=== PATIENT | female | born 1965 | race African-American/Black ===

== ENCOUNTER 2016-06-29 19:23 | Observation (INO) | payer MEDICAID, OTHER ==
[~2016-06-29] VITALS: Ht 165.1 cm; Wt 104.0 kg
[~2016-06-29 19:23] MED LIST: ALBU8I INH; AMLO2.5T PO; GABA300C3 PO; IBUP600T26 PO; LASI20TA PO; LOSA25 PO; NITR0.4S SL; NOVO7030P2 SQ; PROT40TA PO
[2016-06-29 19:29] VITALS: BP 138/71; PULSE 79; RESP 20; TEMP 98.3; O2SAT 98
[2016-06-29 19:37] VITALS: BP_SYST 134; BP_SYST 140; BP_DIAS 71; BP_DIAS 72; PULSE 78; RESP 20; TEMP 98.3; O2SAT 98
[2016-06-29 19:38] VITALS: RESP 20
[2016-06-29 19:39] VITALS: BP 140/70; PULSE 78; RESP 20; TEMP 98.3; O2SAT 98
[2016-06-29] MEDS ORDERED: FURO1TAB62 PO (19:43)
[2016-06-29] MEDS ORDERED: LOSA25TA PO (19:43)
[2016-06-29] MEDS ORDERED: NITR1SUB3 SL (19:43)
[2016-06-29] MEDS ORDERED: GLIP10TA6 PO (19:43)
[2016-06-29] MEDS ORDERED: ALBUAER3 INH (19:43)
[2016-06-29] MEDS ORDERED: AMLO2.5T PO (19:43)
[2016-06-29] MEDS ORDERED: NOVO7030P2 SQ (19:43)
[2016-06-29] MEDS ORDERED: GABA300C5 PO (19:43)
[2016-06-29] MEDS ORDERED: PROT40TA PO (19:43)
[2016-06-29] MEDS ORDERED: ASPIRIN 81 MG CHEW TAB PO ONE (19:45)
[2016-06-29] MEDS ORDERED: SODIUM CHLORIDE 0.9% FLUSH 5 ML FLUSH IVF PRN ×2 (19:45→21:30)
[2016-06-29 20:11] LABS: AUTOMATED NEUTROPHIL # 3.7 TH/MM3 (1.8-7.7); BASOPHIL % 0.3 % (0.0-2.0); EOSINOPHIL # 0.1 TH/MM3 (0-0.4); EOSINOPHIL % 1.9 % (0.0-4.0); HEMATOCRIT 35.8 % (35.0-46.0); HEMO FLAGS DIFF FINAL; LYMPH % 38.6 % (9.0-44.0); LYMPHOCYTE # 2.6 TH/MM3 (1.0-4.8); MEAN CELL VOLUME 86.6 FL (80.0-100.0); MEAN CORPUSCULAR HEMOGLOBIN 29.9 PG (27.0-34.0); MEAN CORPUSCULAR HGB CONC 34.5 % (32.0-36.0); MONO % 4.1 % (0.0-8.0); NEUT % 55.1 % (16.0-70.0); PLATELET COUNT 353 TH/MM3 (150-450); RED BLOOD COUNT 4.14 MIL/MM3 (4.00-5.30); RED CELL DISTRIBUTION WIDTH 14.1 % (11.6-17.2); WHITE BLOOD COUNT 6.7 TH/MM3 (4.0-11.0)
[2016-06-29 20:12] LABS: APTT (PATIENT) 26.1 SEC (24.3-30.1); INTERNATIONAL NORMALIZED RATIO 0.9 RATIO; PROTHROMBIN TIME - PATIENT 9.7 SEC (9.8-11.6)
[2016-06-29 20:21] LABS: ANION GAP 9 MEQ/L (5-15); BICARBONATE 26.8 MEQ/L (21.0-32.0); BLOOD UREA NITROGEN 15 MG/DL (7-18); CHLORIDE 100 MEQ/L (98-107); GLOMERULAR FILTRATION RATE 91 ML/MIN (>89); MAGNESIUM 1.7 MG/DL (1.5-2.5); POTASSIUM 3.1 MEQ/L (3.5-5.1); SODIUM (NA) 136 MEQ/L (136-145)
[2016-06-29 20:26] LABS: ALKALINE PHOSPHATASE 98 U/L (45-117); ALT (GPT) 20 U/L (10-53); AST (GOT) 13 U/L (15-37); CREATINE KINASE 123 U/L (26-192); TOTAL BILIRUBIN ADULT 0.1 MG/DL (0.2-1.0)
--- NOTE | 2016-06-29 20:34 | RADRPT ---
EXAM DATE/TIME: 06/29/2016 19:52 [place] COMPARISON: CHEST PA & LAT, December 14, 2014, 7:39. INDICATIONS : Chest pain and shortness of breath. MEDICAL HISTORY : Diabetes mellitus type II. SURGICAL HISTORY : None. ENCOUNTER: Initial ACUITY: 1 month PAIN SCORE: 8/10 LOCATION: Left chest FINDINGS: PA and lateral views of the chest demonstrate the lungs to be symmetrically aerated without evidence of mass, infiltrate or effusion. The cardiomediastinal contours are unremarkable. Osseous structure s are intact. CONCLUSION: No acute disease. Mendoza Fabian MD FACR on June 29, 2016 at 20:32 Board Certified Radiologist. This report was verified electronically.
[2016-06-29 20:39] LABS: CKMB 1.5 NG/ML (0.5-3.6)
[2016-06-29] MEDS ORDERED: MORPHINE SULFATE 4 MG/ML INJ IV PUSH ONE (20:45)
[2016-06-29] MEDS ORDERED: POTASSIUM CHLORIDE 10 MEQ CONTROLLED RELEASE TAB PO ONE (20:45)
--- NOTE | 2016-06-29 21:15 | PD ---
HPI Chief Complaint: Chest Pain Time Seen by Provider: 19:30 Travel History International Travel<30 days: No Contact w/Intl Traveler<30days: No Traveled to known affect area: No History of Present Illness HPI Patient is a 51 year old female with a history of DM who comes in complaining of chest pain. She says she has had pain in her chest for the past month. She came in [facility], because she felt her sugar was low. Per EMS, her sugar was 98 when they arrived. She states her sugar was 64, so she drank a pepsi and ate some sugar. She says she was feeling sweaty and shaky, which is why she knew her sugar was low. The pain in her chest, which she says has been the same for the past month, she says feels like a squeezing. She says she has had a cough with some nausea, vomiting and diarrhea for the past 3 days. She says she has not vomited today. She says she only has abdominal pain when she coughs. PFSH Past Medical History Asthma: No Blood Disorders: No Anxiety: No Depression: Yes Heart Rhythm Problems: No Cancer: No Cardiac Catheterization: Yes Cardiovascular Problems: No High Cholesterol: Yes Chemotherapy: No Chest Pain: Yes Congestive Heart Failure: Yes COPD: Yes Diabetes: Yes Patient Takes Glucophage: Yes Diminished Hearing: No Endocrine: No Genitourinary: No Hepatitis: No Hiatal Hernia: No Hypertension: Yes Immune Disorder: No Musculoskeletal: No Neurologic: No Psychiatric: Yes Reproductive: No Respiratory: Yes Immunizations Current: Yes Radiation Therapy: No Sleep Apnea: No Thyroid Disease: Yes Tetanus Vaccination: Unknown Influenza Vaccination: No ?: Not : 1 Para: 1 Miscarriage: 0 : 0 Past Surgical History Abdominal Surgery: No AICD: No Body Medical Devices: NONE Cardiac Surgery: No Ear Surgery: No Endocrine Surgery: No Eye Surgery: No Genitourinary Surgery: No Gynecologic Surgery: Yes (D & C) Hysterectomy: Yes Joint Replacement: No Oral Surgery: No Pacemaker: No Thoracic Surgery: No Other Surgery: Yes (LEFT WRIST, DNC. 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 Codeine (Verified Adverse Reaction, Severe, 06/29/16) PT STATES NOT ALLERGIC TO THIS DRUG OR HAVE ANY SIDE EFFECTS Percocet (Verified Adverse Reaction, Severe, Nausea/Vomiting, 06/29/16) Reported Meds & Prescriptions Reported Meds & Active Scripts Active Reported Glipizide 10 Mg Tab 10 Mg PO BIDAC Take 30 minutes before a meal Gabapentin 300 Mg Cap 300 Mg PO TID Novolin 70-30 Inj (Insulin Human Isoph/Insulin Regular) 1,000 Unit/10 Ml Vial 1 Units SQ BIDAC Losartan (Losartan Potassium) 25 Mg Tab 25 Mg PO DAILY Nitroglycerin SL (Nitroglycerin) 0.4 Mg Subl 0.4 Mg SL DIRECTED PRN ONE TABLET UNDER THE TONGUE NEEDED FOR CHEST PAIN, MAY REPEAT EVERY FIVE MINUTES FOR A TOTAL OF 3 DOSES OR CALL 911 IF NO RELIEF Protonix (Pantoprazole Sodium) 40 Mg Tab 40 Mg PO DAILY Lasix (Furosemide) 20 Mg Tab 20 Mg PO DAILY Amlodipine (Amlodipine Besylate) 2.5 Mg Tab 2.5 Mg PO DAILY Proair Hfa 8.5 GM Inh (Albuterol Sulfate) 90 Mcg/Act Aer 2 Puff INH Q6H PRN 108 mcg/actuation Review of Systems Except as stated in HPI: all other systems reviewed are Neg General / Constitutional: No: Fever, Chills Eyes: No: Diploplia HENT: No: Headaches, Lightheadedness Cardiovascular: Positive: Chest Pain or Discomfort Respiratory: Positive: Cough, No: Shortness of Breath Gastrointestinal: Positive: Nausea, Vomiting, Diarrhea Genitourinary: No: Dysuria Musculoskeletal: No: Weakness, Edema Skin: No Change in Pigmentation Neurologic: No: Weakness, Dizziness Physical Exam Narrative GENERAL: Awake and alert in no acute distress. SKIN: Warm and dry. HEAD: Atraumatic. Normocephalic. EYES: Pupils equal and round. No scleral icterus. ENT: Mucous membranes pink and moist. NECK: Trachea midline. No JVD. CARDIOVASCULAR: Regular rate and rhythm. No murmur appreciated. RESPIRATORY: No accessory muscle use. Clear to auscultation. Breath sounds equal bilaterally. GASTROINTESTINAL: Abdomen soft, non-tender, nondistended. No tenderness to palpation, no rebound or guarding. MUSCULOSKELETAL: No obvious deformities. No clubbing. No cyanosis. No edema. NEUROLOGICAL: Awake and alert. No obvious cranial nerve deficits. Motor grossly within normal limits. Normal speech. PSYCHIATRIC: Appropriate mood and affect; insight and judgment normal. Data Data Last Documented VS Vital Signs Date Time Temp Pulse Resp B/P Pulse Ox O2 Delivery O2 Flow Rate FiO2 06/29/16 20:50 20 06/29/16 19:39 98.3 78 140/70 98 Room Air Orders Electrocardiogram (06/29/16 19:34) B-Type Natriuretic Peptide (06/29/16 19:34) Ckmb (Isoenzyme) Profile (06/29/16 19:34) Complete Blood Count With Diff (06/29/16 19:34) Comprehensive Metabolic Panel (06/29/16 19:34) Magnesium (Mg) (06/29/16 19:34) Prothrombin Time / Inr (Pt) (06/29/16 19:34) Act Partial Throm Time (Ptt) (06/29/16 19:34) Troponin I (06/29/16 19:34) Lipase (06/29/16 19:34) Ecg Monitoring (06/29/16 19:34) Bilateral Bp Monitoring (06/29/16 19:34) Iv Access Insert/Monitor (06/29/16 19:34) Oximetry (06/29/16 19:34) Oxygen Administration (06/29/16 19:34) Aspirin Chew (Aspirin Chew) (06/29/16 19:45) Sodium Chloride 0.9% Flush (Ns Flush) (06/29/16 19:45) Chest, Pa & Lat (06/29/16 19:34) CKMB (06/29/16 19:45) CKMB% (06/29/16 19:45) Potassium Chloride (Kcl) (06/29/16 20:45) Morphine Inj (Morphine Inj) (06/29/16 20:45) Mandatory Outpatient Referral (06/29/16 21:16) Activity Bed Rest With Brp (06/29/16 21:21) Vital Signs (Adult) Q4H (06/29/16 21:21) Cardiac Rhythm .As Directed (06/29/16 21:21) ^ Notify Dr: Other .PRN (06/29/16 21:21) ^ Notify Parameters (06/29/16 21:21) Resp Oxygen Nasal Cannula (06/29/16 ) Diet Heart Healthy (06/30/16 Breakfast) Ckmb (Isoenzyme) Profile (06/29/16 22:45) Ckmb (Isoenzyme) Profile (06/30/16 01:45) Troponin I (06/29/16 22:45) Troponin I (06/30/16 01:45) Electrocardiogram (06/30/16 01:45) ^ Obtain (06/29/16 21:21) Sodium Chloride 0.9% Flush (Ns Flush) (06/29/16 21:30) Sodium Chloride 0.9% Flush (Ns Flush) (06/30/16 09:00) Admit Order (Ed Use Only) (06/29/16 ) CKMB (06/29/16 23:15) CKMB% (06/29/16 23:15) CKMB (06/30/16 01:35) CKMB% (06/30/16 01:35) Labs Laboratory Tests Test 06/29/16 19:45 White Blood Count 6.7 TH/MM3 Red Blood Count 4.14 MIL/MM3 Hemoglobin 12.4 GM/DL Hematocrit 35.8 % Mean Corpuscular Volume 86.6 FL Mean Corpuscular Hemoglobin 29.9 PG Mean Corpuscular Hemoglobin 34.5 % Concent Red Cell Distribution Width 14.1 % Platelet Count 353 TH/MM3 Mean Platelet Volume 8.7 FL Neutrophils (%) (Auto) 55.1 % Lymphocytes (%) (Auto) 38.6 % Monocytes (%) (Auto) 4.1 % Eosinophils (%) (Auto) 1.9 % Basophils (%) (Auto) 0.3 % Neutrophils # (Auto) 3.7 TH/MM3 Lymphocytes # (Auto) 2.6 TH/MM3 Monocytes # (Auto) 0.3 TH/MM3 Eosinophils # (Auto) 0.1 TH/MM3 Basophils # (Auto) 0.0 TH/MM3 CBC Comment DIFF FINAL Differential Comment Prothrombin Time 9.7 SEC Prothromb Time International 0.9 RATIO Ratio Activated Partial 26.1 SEC Thromboplast Time Sodium Level 136 MEQ/L Potassium Level 3.1 MEQ/L Chloride Level 100 MEQ/L Carbon Dioxide Level 26.8 MEQ/L Anion Gap 9 MEQ/L Blood Urea Nitrogen 15 MG/DL Creatinine 0.80 MG/DL Estimat Glomerular Filtration 91 ML/MIN Rate Random Glucose 213 MG/DL Calcium Level 8.5 MG/DL Magnesium Level 1.7 MG/DL Total Bilirubin 0.1 MG/DL Aspartate Amino Transf 13 U/L (AST/SGOT) Alanine Aminotransferase 20 U/L (ALT/SGPT) Alkaline Phosphatase 98 U/L Total Creatine Kinase 123 U/L Creatine Kinase MB 1.5 NG/ML Troponin I LESS THAN 0.02 NG/ML B-Type Natriuretic Peptide 3 PG/ML Total Protein 7.3 GM/DL Albumin 2.9 GM/DL Lipase 137 U/L [facility] Medical Decision Making Medical Screen Exam Complete: Yes Emergency Medical Condition: Yes Medical Record Reviewed: Yes Interpretation(s) ECG shows normal sinus rhythm at 77. No ST elevation or depression. Normal intervals. Differential Diagnosis Pneumonia versus hypoglycemia versus ACS versus costochondritis Narrative Course Patient is a 51-year-old female who comes in complaining of chest pain and low blood sugar. IV established, patient connected to personnel monitor. ECG shows no signs of ischemia. Labs sent show a glucose over 213. Troponin is negative. Chest x-ray shows no signs of pneumonia, no cardiomegaly, no pulmonary edema. Patient is requesting morphine. Given aspirin, given 2 mg morphine. Patient will be placed in chest pain center for further management. Diagnosis Primary Impression: Atypical chest pain Additional Impression: Cough Admitting Information Admitting Physician Requests: Observation Patient Instructions: General Instructions Abbi Rosales MD Jun 29, 2016 21:15
[2016-06-29 22:01] VITALS: O2SAT 98
[2016-06-29 22:09] VITALS: BP 132/70; PULSE 67; RESP 20; TEMP 98; O2SAT 98
[2016-06-29 23:50] LABS: CREATINE KINASE 230 U/L (26-192)
[2016-06-30 00:04] LABS: CKMB 3.5 NG/ML (0.5-3.6)
[2016-06-30 00:14] VITALS: BP 112/66; PULSE 78; RESP 18; TEMP 98.3; O2SAT 96
[2016-06-30 00:30] VITALS: PULSE 77
[2016-06-30 02:17] LABS: CREATINE KINASE 108 U/L (26-192)
[2016-06-30 02:29] LABS: CKMB 1.3 NG/ML (0.5-3.6)
[2016-06-30 05:03] VITALS: BP 114/79; PULSE 85; RESP 18; TEMP 97.9; O2SAT 96
[2016-06-30 07:28] VITALS: BP 123/79; PULSE 79; RESP 20; TEMP 97.9; O2SAT 95
[2016-06-30] MEDS ORDERED: NITROGLYCERIN 0.4 MG SL 25 TABS/BTL SL PRN (08:00)
[2016-06-30] MEDS ORDERED: GLUCAGON 1 MG/ML VIAL OTHER PRN (08:00)
[2016-06-30] MEDS ORDERED: ONDANSETRON HCL 4 MG/2 ML VIAL IV PRN (08:00)
[2016-06-30] MEDS ORDERED: DEXTROSE 50% IN WATER 50 ML VIAL(D50) IV PUSH PRN (08:00)
[2016-06-30] MEDS ORDERED: ASPIRIN 325 MG TAB PO SCH (09:00)
[2016-06-30] MEDS ORDERED: SODIUM CHLORIDE 0.9% FLUSH 5 ML FLUSH IVF SCH (09:00)
[2016-06-30] MEDS ORDERED: RESP: ALBUTEROL 2.5 MG/3 ML NEB (PRN) NEB (11:15)
[2016-06-30] MEDS ORDERED: amLODIPine BESYLATE 5 MG TAB PO SCH (11:15)
[2016-06-30] MEDS ORDERED: FUROSEMIDE 20 MG TAB PO SCH (11:15)
[2016-06-30] MEDS ORDERED: PILL SPLITTER OTHER PRN (11:15)
[2016-06-30] MEDS ORDERED: PANTOPRAZOLE SOD 40 MG DELAYED RELEASE TAB PO SCH (11:15)
[2016-06-30] MEDS ORDERED: NITR1SUB3 SL (11:35)
--- NOTE | 2016-06-30 11:35 | HHI.DCPOC ---
Discharge Care Plan Diagnosis: (1) Atypical chest pain (2) Type II diabetes mellitus (3) Tobacco use disorder Goals to Promote Your Health * To prevent worsening of your condition and complications * To maintain your health at the optimal level Directions to Meet Your Goals Take your medications as prescribed Follow your dietary instruction Follow activity as directed Keep your appointments as scheduled Take your immunizations and boosters as scheduled If your symptoms worsen call your PCP, if no PCP go to Urgent Care Center or Emergency Room Smoking is Dangerous to Your Health. Avoid second hand smoke Call the 24-hour hour crisis hotline for domestic abuse at Rizwana Wilkinson Jun 30, 2016 11:35
[2016-06-30 11:53] LABS: BACTERIA, URINE OCC /hpf; BLOOD, URINE TRACE (NEG); COMMENT (UR) CULT NOT INDICATED; CULTURE IF INDICATED CULT NOT INDICATED; GLUCOSE,URINE NEG (NEG); KETONE, URINE NEG (NEG); NITRITE,URINE NEG (NEG); PH, URINE 6.5 (5.0-8.5); SQUAMOUS EPITHELIAL CELL URINE 11 /hpf (0-5); URINE COLOR LIGHT-YELLOW (YELLW/STRAW)
[2016-06-30] MEDS ORDERED: LOSARTAN 25 MG TAB PO SCH (12:00)
[2016-06-30] MEDS ORDERED: GABAPENTIN 300 MG CAP PO SCH (13:00)
[2016-06-30] MEDS ORDERED: INSULIN ASPART SUPPLEMENTAL SCALE SQ SCH (16:00)
--- NOTE | 2016-06-30 18:38 | MH ---
cc: RAMONE VELÁZQUEZ MD DATE OF ADMISSION 06/29/2016 1965 CHIEF COMPLAINT Chest pain and hypoglycemia. HISTORY OF PRESENT ILLNESS This is a 51-year-old patient with known diabetes and hyperlipidemia and hypertension who presents to the emergency room with a complaint of her blood pressure dropping and chest pain. The patient tells us a story for the last month or two whenever her blood sugar dropped significantly, she develops chest pain. Yesterday for blood sugar was 276 and then she started having chest discomfort. She went to check her blood sugar and her blood sugar was 64. At that time, she drank a Pepsi and started having an anxiety attack and decided to call --1. Chest pain was located on her left anterior chest described as "bricks on my chest" and felt as though something was pulling on the inside. There was no radiation. Duration was approximately five minutes. Associated symptoms included nausea, diaphoresis, shortness of breath and both her hands got numb. No precipitating factors or relieving factors. The patient says over the past 2-3 years she has had similar chest pain, although states when her blood glucose is elevated she also feels the same with her chest discomfort. PAST MEDICAL HISTORY 1. Diabetes, 2. Hyperlipidemia, 3. Chronic obstructive pulmonary disease 4. Bipolar 5. Depression, 6. Hypertension. PAST SURGICAL HISTORY Hysterectomy. SOCIAL HISTORY She is disabled. Smokes three cigarettes daily. This is down from a half-a-pack daily. Denies any alcohol or illegal drug use. States she has not used cocaine in over six years. Does have known hypertension, diabetes and hyperlipidemia. PAST CARDIAC TESTING She had a chemical stress test completed 02/24/2016 here at [facility] which was a stable exam with no significant fixed or reversible perfusion with a satisfactory LV function. She also remembers having a cardiac catheterization at a different hospital some years ago. No intervention was needed at that time. MEDICATIONS current include 1. Glipizide 10 mg b.i.d. 2. NovoLog 70/30, 30 units in the a.m. and 20 units in the p.m. Sliding scale insulin in between. 3. Losartan 25 mg daily 4. Gabapentin 300 mg t.i.d. 5. Albuterol inhaler as needed. States she uses every 2-3 days 1 puff. 6. Amlodipine 2.5 mg daily. 7. Lasix 20 mg daily. 8. Protonix 40 mg daily. 9. A cholesterol medication, although she cannot remember the name of this medication. ALLERGIES BACTRIM CODEINE PERCOCET (all cause her to itch) REVIEW OF SYSTEMS GENERAL: No fatigue, malaise, fevers, chills, change in appetite. She is getting over a stomach bug with which she had nausea, vomiting and diarrhea for the past three days, although this is resolving. HEENT: No headache or visual changes. Does state she has blurred vision and is due to have surgery in her left eye due to bleeding in the back of her eye. No dysphagia. CARDIOVASCULAR: As stated above. No current chest pain or pressure. No palpitations, intermittent leg pain or dizziness. RESPIRATORY: She has no shortness of breath, although she does state after walking two block She does become short of breath. Therefore, she does not exert herself. No wheeze, hemoptysis. The patient states she has been coughing the last few days. No sputum production. ABDOMEN: No bowel changes, diarrhea, constipation, pain, distension, blood in stool or dark stool. Reports a good appetite, not losing weight or gaining weight unintentionally. : No dysuria, urgency, frequency or hematuria or kidney stones. States her bladder feels "full and hurts" and is concerned that she has a urinary tract infection. EXTREMITIES: No lower leg edema other then after being on her feet for some time, no pain. MUSCULOSKELETAL: No change in range of motion NEUROLOGIC: No difficulty with balance, motor sensory deficits, loss of consciousness, change in memory. PSYCHIATRIC: No anxiety or depression. SKIN: She has no rashes or concerning lesions. PHYSICAL EXAMINATION VITAL SIGNS: Temperature 97.9, pulse 79, respiratory 18, blood pressure 123/79 and she is 96% on room air. GENERAL: She is alert, obese, well-nourished, well-developed in no acute distress pleasant -[place] female HEAD: Normocephalic, atraumatic. EYES: Sclerae clear. Conjunctivae without injection. Pupils are equal and round. NECK: Supple. Trachea is midline. CARDIOVASCULAR: She has a regular rate and rhythm without murmur, rub or gallop. No JVD. S1, S2. No S3. No S4. No carotid bruits. RESPIRATORY: Clear lungs throughout bilateral with no crackles, wheeze or rhonchi. She has a symmetrical chest rise. ABDOMEN: Soft, obese, nontender, nondistended. Positive bowel tones. BACK: No CVA tenderness. No scoliosis. EXTREMITIES: Pulses +1 x4 with trace pitting edema of her ankles. MUSCULOSKELETAL: Normal tone x4. She has no obvious deformities. NEUROLOGIC: Cranial nerves II-XII grossly intact. Motor strength 5/5. Gait within normal limits. PSYCHIATRIC: She is alert and oriented x3, has a pleasant affect appropriate to mood, insight and judgment. SKIN: Normal turgor, normal texture. No rashes or lesions. Skin is warm and dry. no cough. The patient states she has been coughing an. LABORATORY DATA CBC is unremarkable. Chemistry - potassium of 3.1, random glucose of 213 otherwise unremarkable. Three sets of cardiac enzymes are negative. Coagulation is unremarkable and also UA is unremarkable. IMAGING STUDIES Chest x-ray Read by radiologist as impression of no acute disease. CARDIOLOGY STUDIES Three EKGs show a normal sinus rhythm with no ST or T segment changes. ASSESSMENT/PLAN 1. Chest pain. The patient has been admitted to the chest pain center. She was ruled out with three sets of EKGs and cardiac enzymes and monitored overnight. Emergency room physician has placed a mandatory cardiology consult for her as she has complained of chest pain for the past few months and states she is unable to find a heliarc welder. She has been encouraged with her [employer] insurance to follow up with [facility]. She has assured that she will do this early next week. At this time, her chest pain is probably atypical. She has a recent Lexiscan and the patient does not want any further cardiac testing. Therefore, she will be discharged later this afternoon and she is agreeable to this plan of care. She is encouraged to come back to the emergency room for any further chest discomfort. 2. Tobacco use. She has been strongly encouraged and stressed importance of tobacco cessation. Discussed with the patient to quit smoking. 3. Hypokalemia. Supplementation has been provided. 4. Diabetes. Sliding scale insulin and blood glucose checks have been ordered. I have also discussed with her at length the importance of tight blood sugar control as her keeping her blood sugars above 200 is not in her best interest and, in fact, she is not becoming hypoglycemic. Rather her feeling she is having when her sugar is low is her body is not used to normal blood sugar level. She is agreeable to follow up with her primary care provider and keep a blood sugar log to take with her to her next primary care appointment. Dictated by JASPER Bean MD DONNA Cox/ /5:51 PM /8:46 AM
--- NOTE | 2016-07-01 18:30 | EKG ---
Date Performed: 06/29/2016 Time Performed: 19:40:10 PTAGE: 51 years EKG: Sinus rhythm SETAL NONSPECIFIC T-WAVE ABNORMALITY BORDERLINE ECG PREVIOUS TRACING : 02/24/2016 09.47 DOCTOR: Bogdan Casillas Interpretating Date/Time 07/01/2016 18:29:17
--- NOTE | 2016-07-01 21:38 | EKG ---
Date Performed: 06/30/2016 Time Performed: 01:53:07 PTAGE: 51 years EKG: Sinus rhythm NORMAL ECG PREVIOUS TRACING : 06/29/2016 19.40 DOCTOR: Bogdan Casillas Interpretating Date/Time 07/01/2016 21:36:32
== END 2016-06-30 12:58 | disposition home or self-care (01) ==
LOC: NEPC 19:23 → NEDA 21:24 → NEPHCDU 23:50
PROVIDERS: ADMIT Internal Medicine Cardiovascular Disease; ATTEND Internal Medicine Cardiovascular Disease
DX: R07.89 Other chest pain (principal); E11.649 Type 2 diabetes mellitus with hypoglycemia without coma; E87.6 Hypokalemia; I10 Essential (primary) hypertension; R94.31 Abnormal electrocardiogram [ECG] [EKG]; E78.5 Hyperlipidemia, unspecified; E78.00 Pure hypercholesterolemia, unspecified; J44.9 Chronic obstructive pulmonary disease, unspecified; F41.1 Generalized anxiety disorder; F17.210 Nicotine dependence, cigarettes, uncomplicated; Z79.84 Long term (current) use of oral hypoglycemic drugs
CPT/HCPCS: 71020; 80053; 81001; 82550; 82552; 82948; 83690; 83735; 83880; 84484; 85025; 85610; 85730; 93005; 96374; 99285; G0378; J2270

== ENCOUNTER 2016-11-08 03:00 | Observation (INO) | payer OTHER, MEDICAID ==
[~2016-11-08 03:00] MED LIST changes: -ALBU8I INH; +ALBUAER3 INH; +FURO1TAB62 PO; -GABA300C3 PO; +GABA300C5 PO; +GLIP10TA6 PO; -IBUP600T26 PO; -LASI20TA PO; -LOSA25 PO; +LOSA25TA PO; -NITR0.4S SL; +NITR1SUB3 SL
[2016-11-08 03:01] VITALS: BP 143/85; PULSE 101; RESP 18; TEMP 98.8; O2SAT 100
[2016-11-08] MEDS: NITROGLYCERIN 0.4 MG SL 25 TABS/BTL SL SCH ×3 (03:27→03:40)
[2016-11-08] MEDS ORDERED: SODIUM CHLORIDE 0.9% FLUSH 10 ML FLUSH IVF PRN (03:30)
[2016-11-08] MEDS ORDERED: ASPIRIN 81 MG CHEW TAB PO ONE (03:30)
[2016-11-08] MEDS ORDERED: diphenhydrAMINE HCL 50 MG CAP PO ONE (03:45)
--- NOTE | 2016-11-08 03:50 | PD ---
HPI Chief Complaint: Chest Pain Time Seen by Provider: 03:08 Travel History International Travel<30 days: No Contact w/Intl Traveler<30days: No Traveled to known affect area: No History of Present Illness HPI Patient is a 61-year-old female with history of diabetes, hyperlipidemia, hypertension, COPD, presents to emergency room with complaints of chest pain. Reports that a half hour prior to arriving to the emergency room, she woke up from sleep with left-sided chest pain. She reports that she was having a "pressure to my chest." Patient reports that she does not feel short of breath or diaphoretic her symptoms. Patient reports that her symptoms feel similar to when she has had chest pain in the past. Patient reports that she was given a prescription for nitroglycerin for her chest pain, reports that she left all her medications including her insulin at her daughter's home and not taken any of her medications for the past day. Patient reports that she has been seen in the emergency room for chest pain in the past, reports that history of a cardiac catheterization, no stents were deployed. Patient reports that she was seen by a trestle mechanic here in the emergency room and told to follow-up in the office but has not been able to make an appointment with a trestle mechanic. PFSH Past Medical History Asthma: No Blood Disorders: No Anxiety: No Depression: Yes Heart Rhythm Problems: No Cancer: No Cardiac Catheterization: Yes Cardiovascular Problems: No High Cholesterol: Yes Chemotherapy: No Chest Pain: Yes Congestive Heart Failure: Yes COPD: Yes Diabetes: Yes Patient Takes Glucophage: No Diminished Hearing: No Endocrine: No Genitourinary: No Hepatitis: No Hiatal Hernia: No Hypertension: Yes Immune Disorder: No Musculoskeletal: No Neurologic: No Psychiatric: Yes Reproductive: No Respiratory: Yes Immunizations Current: Yes Radiation Therapy: No Sleep Apnea: No Thyroid Disease: Yes ?: Not : 1 Para: 1 Miscarriage: 0 : 0 Past Surgical History Abdominal Surgery: No AICD: No Body Medical Devices: NONE Cardiac Surgery: No Ear Surgery: No Endocrine Surgery: No Eye Surgery: No Genitourinary Surgery: No Gynecologic Surgery: Yes (D & C) Hysterectomy: Yes Joint Replacement: No Oral Surgery: No Pacemaker: No Thoracic Surgery: No Other Surgery: Yes (LEFT WRIST, DNC. ) Social History Alcohol Use: Yes (1 beer daily ) Tobacco Use: Yes (1/2 ppd) Substance Use: No Allergies-Medications (Allergen,Severity, Reaction): Coded Allergies: Bactrim (Verified Allergy, Mild, Itching, 11/08/16) *MDRO Multi-Drug Resistant Organism (Verified Allergy, Unknown, 11/08/16) MRSA Codeine (Verified Adverse Reaction, Severe, 11/08/16) PT STATES NOT ALLERGIC TO THIS DRUG OR HAVE ANY SIDE EFFECTS Percocet (Verified Adverse Reaction, Severe, Nausea/Vomiting, 11/08/16) Reported Meds & Prescriptions Reported Meds & Active Scripts Active Nitroglycerin SL (Nitroglycerin) 0.4 Mg Subl 0.4 Mg SL DIRECTED PRN ONE TABLET UNDER THE TONGUE NEEDED FOR CHEST PAIN, MAY REPEAT EVERY FIVE MINUTES FOR A TOTAL OF 3 DOSES OR CALL 911 IF NO RELIEF Reported Glipizide 10 Mg Tab 10 Mg PO BIDAC Take 30 minutes before a meal Gabapentin 300 Mg Cap 300 Mg PO TID Novolin 70-30 Inj (Insulin Human Isoph/Insulin Regular) 1,000 Unit/10 Ml Vial 1 Units SQ BIDAC Losartan (Losartan Potassium) 25 Mg Tab 25 Mg PO DAILY Protonix (Pantoprazole Sodium) 40 Mg Tab 40 Mg PO DAILY Lasix (Furosemide) 20 Mg Tab 20 Mg PO DAILY Amlodipine (Amlodipine Besylate) 2.5 Mg Tab 2.5 Mg PO DAILY Proair Hfa 8.5 GM Inh (Albuterol Sulfate) 90 Mcg/Act Aer 2 Puff INH Q6H PRN 108 mcg/actuation Review of Systems General / Constitutional: No: Fever Eyes: No: Visual changes HENT: No: Headaches Cardiovascular: Positive: Chest Pain or Discomfort, No: Diaphoresis Respiratory: No: Shortness of Breath Gastrointestinal: No: Abdominal Pain Genitourinary: No: Dysuria Musculoskeletal: No: Pain Skin: No Rash Neurologic: No: Weakness Psychiatric: No: Depression Endocrine: No: Polydipsia Hematologic/Lymphatic: No: Easy Bruising Physical Exam Narrative GENERAL: Mild distress, morbidly obese SKIN: Focused skin assessment warm/dry. HEAD: Atraumatic. Normocephalic. EYES: Pupils equal and round. No scleral icterus. No injection or drainage. ENT: No nasal bleeding or discharge. Mucous membranes pink and moist. NECK: Trachea midline. No JVD. CARDIOVASCULAR: Regular rate and rhythm. No murmur appreciated. RESPIRATORY: No accessory muscle use. Clear to auscultation. Breath sounds equal bilaterally. GASTROINTESTINAL: Abdomen soft, non-tender, nondistended. Hepatic and splenic margins not palpable. MUSCULOSKELETAL: No obvious deformities. No clubbing. No cyanosis. No edema. NEUROLOGICAL: Awake and alert. No obvious cranial nerve deficits. Motor grossly within normal limits. Normal speech. PSYCHIATRIC: Appropriate mood and affect; insight and judgment normal. Data Data Last Documented VS Vital Signs Date Time Temp Pulse Resp B/P Pulse Ox O2 Delivery O2 Flow Rate FiO2 11/08/16 03:21 100 Room Air 11/08/16 03:01 98.8 101 18 143/85 Orders B-Type Natriuretic Peptide (11/08/16 03:17) Ckmb (Isoenzyme) Profile (11/08/16 03:17) Complete Blood Count With Diff (11/08/16 03:17) Comprehensive Metabolic Panel (11/08/16 03:17) Magnesium (Mg) (11/08/16 03:17) Prothrombin Time / Inr (Pt) (11/08/16 03:17) Act Partial Throm Time (Ptt) (11/08/16 03:17) Troponin I (11/08/16 03:17) Lipase (11/08/16 03:17) Chest, Single Ap (11/08/16 03:17) Ecg Monitoring (11/08/16 03:17) Iv Access Insert/Monitor (11/08/16 03:17) Oximetry (11/08/16 03:17) Aspirin Chew (Aspirin Chew) (11/08/16 03:30) Sodium Chloride 0.9% Flush (Ns Flush) (11/08/16 03:30) Nitroglycerin Sl (Nitrostat Sl) (11/08/16 03:30) Diphenhydramine (Benadryl) (11/08/16 03:45) CKMB (11/08/16 03:30) CKMB% (11/08/16 03:30) Sodium Chlor 0.9% 1000 Ml Inj (Ns 1000 M (11/08/16 04:30) Insulin Human Regular Inj (Novolin R Inj (11/08/16 04:30) Morphine Inj (Morphine Inj) (11/08/16 05:00) Labs Laboratory Tests Test 11/08/16 03:30 White Blood Count 6.1 TH/MM3 Red Blood Count 4.33 MIL/MM3 Hemoglobin 12.8 GM/DL Hematocrit 37.5 % Mean Corpuscular Volume 86.8 FL Mean Corpuscular Hemoglobin 29.5 PG Mean Corpuscular Hemoglobin 34.0 % Concent Red Cell Distribution Width 14.1 % Platelet Count 338 TH/MM3 Mean Platelet Volume 8.7 FL Neutrophils (%) (Auto) 54.6 % Lymphocytes (%) (Auto) 38.3 % Monocytes (%) (Auto) 5.0 % Eosinophils (%) (Auto) 1.5 % Basophils (%) (Auto) 0.6 % Neutrophils # (Auto) 3.3 TH/MM3 Lymphocytes # (Auto) 2.3 TH/MM3 Monocytes # (Auto) 0.3 TH/MM3 Eosinophils # (Auto) 0.1 TH/MM3 Basophils # (Auto) 0.0 TH/MM3 CBC Comment DIFF FINAL Differential Comment Prothrombin Time 9.7 SEC Prothromb Time International 0.9 RATIO Ratio Activated Partial 27.6 SEC Thromboplast Time Sodium Level 138 MEQ/L Potassium Level 3.7 MEQ/L Chloride Level 100 MEQ/L Carbon Dioxide Level 28.4 MEQ/L Anion Gap 10 MEQ/L Blood Urea Nitrogen 12 MG/DL Creatinine 1.00 MG/DL Estimat Glomerular Filtration 70 ML/MIN Rate Random Glucose 309 MG/DL Calcium Level 8.9 MG/DL Magnesium Level 1.9 MG/DL Total Bilirubin 0.2 MG/DL Aspartate Amino Transf 17 U/L (AST/SGOT) Alanine Aminotransferase 23 U/L (ALT/SGPT) Alkaline Phosphatase 110 U/L Total Creatine Kinase 166 U/L Creatine Kinase MB 1.2 NG/ML Troponin I LESS THAN 0.02 NG/ML B-Type Natriuretic Peptide LESS THAN 2 PG/ML Total Protein 7.9 GM/DL Albumin 3.0 GM/DL Lipase 306 U/L [facility] Medical Decision Making Medical Screen Exam Complete: Yes Emergency Medical Condition: Yes Interpretation(s) EKG at 0314: NSR at 97bpm, qt/qtc: 346/401, no acute st or t wave changes Vital Signs Date Time Temp Pulse Resp B/P Pulse Ox O2 Delivery O2 Flow Rate FiO2 11/08/16 03:21 100 Room Air 11/08/16 03:01 98.8 101 18 143/85 100 Differential Diagnosis ACS, arrhythmia, anxiety reaction, electrolyte abnormality Narrative Course Patient is a 51-year-old female who presents to the emergency room for evaluation of chest pain. Patient was placed on a hide and skin fleshing machine operator upon arrival to the emergency room, an EKG was obtained which did not show any acute abnormalities. Sublingual nitroglycerin ordered Labs including cardiac enzymes and x-ray of the chest ordered. Will continue to monitor patient on hide and skin fleshing machine operator. CBC & BMP Diagram 11/08/16 03:30 Last Impressions Chest X-Ray 11/08/16316 Signed Impressions: Service Date/Time: Sunday, November 08, 2016 03:56 - CONCLUSION: No acute cardiopulmonary disease. Latasha Rodriguez MD 1st set of ce neg, patient will be obs to cdu for chest pain Diagnosis Primary Impression: Chest pain Admitting Information Admitting Physician Requests: Zoe Leong DO November 08, 2016 03:50
[2016-11-08 03:51] LABS: AUTOMATED NEUTROPHIL # 3.3 TH/MM3 (1.8-7.7); BASOPHIL % 0.6 % (0.0-2.0); EOSINOPHIL # 0.1 TH/MM3 (0-0.4); EOSINOPHIL % 1.5 % (0.0-4.0); HEMATOCRIT 37.5 % (35.0-46.0); HEMO FLAGS DIFF FINAL; LYMPH % 38.3 % (9.0-44.0); LYMPHOCYTE # 2.3 TH/MM3 (1.0-4.8); MEAN CELL VOLUME 86.8 FL (80.0-100.0); MEAN CORPUSCULAR HEMOGLOBIN 29.5 PG (27.0-34.0); NEUT % 54.6 % (16.0-70.0); PLATELET COUNT 338 TH/MM3 (150-450); RED BLOOD COUNT 4.33 MIL/MM3 (4.00-5.30); RED CELL DISTRIBUTION WIDTH 14.1 % (11.6-17.2); WHITE BLOOD COUNT 6.1 TH/MM3 (4.0-11.0)
[2016-11-08 04:07] LABS: APTT (PATIENT) 27.6 SEC (24.3-30.1); INTERNATIONAL NORMALIZED RATIO 0.9 RATIO; PROTHROMBIN TIME - PATIENT 9.7 SEC (9.8-11.6)
--- NOTE | 2016-11-08 04:08 | RADRPT ---
EXAM DATE/TIME: 11/08/2016 03:56 [facility] COMPARISON: CHEST PA & LAT, June 29, 2016, 19:52. INDICATIONS : Chest pain. MEDICAL HISTORY : Diabetes mellitus type II. SURGICAL HISTORY : None. ENCOUNTER: Initial ACUITY: 1 day PAIN SCORE: 8/10 LOCATION: Bilateral chest FINDINGS: The lungs are clear without infiltrate, nodule, or mass. There is no appreciable pleural effusion fo r technique. Heart and mediastinum are unremarkable. CONCLUSION: No acute cardiopulmonary disease. Latasha Rodriguez MD on November 08, 2016 at 4:06 Board Certified Radiologist. This report was verified electronically.
[2016-11-08 04:12] LABS: ALT (GPT) 23 U/L (10-53); ANION GAP 10 MEQ/L (5-15); AST (GOT) 17 U/L (15-37); BICARBONATE 28.4 MEQ/L (21.0-32.0); BLOOD UREA NITROGEN 12 MG/DL (7-18); CHLORIDE 100 MEQ/L (98-107); GLOMERULAR FILTRATION RATE 70 ML/MIN (>89); MAGNESIUM 1.9 MG/DL (1.5-2.5); POTASSIUM 3.7 MEQ/L (3.5-5.1); SODIUM (NA) 138 MEQ/L (136-145)
[2016-11-08 04:16] LABS: ALKALINE PHOSPHATASE 110 U/L (45-117); CREATINE KINASE 166 U/L (26-192); TOTAL BILIRUBIN ADULT 0.2 MG/DL (0.2-1.0)
[2016-11-08 04:28] LABS: CKMB 1.2 NG/ML (0.5-3.6)
[2016-11-08] MEDS ORDERED: INSULIN HUMAN REGULAR 1,000 UNITS/10 ML VIAL SQ ONE (04:30)
[2016-11-08] MEDS ORDERED: SODIUM CHLOR 0.9% 1000 ML INJ 1,000 ML IV ONE (04:30)
[2016-11-08] MEDS ORDERED: MORPHINE SULFATE 4 MG/ML INJ IV PUSH ONE (05:00)
[2016-11-08 06:02] VITALS: BP 135/78; PULSE 88; RESP 16; O2SAT 97
[2016-11-08 06:54] VITALS: BP 135/76; PULSE 86; RESP 18; O2SAT 97
[2016-11-08 07:34] LABS: CREATINE KINASE 148 U/L (26-192)
[2016-11-08 07:46] LABS: CKMB 0.8 NG/ML (0.5-3.6)
[2016-11-08 08:25] VITALS: BP 124/74; PULSE 82; RESP 17; TEMP 98; O2SAT 98
--- NOTE | 2016-11-08 09:49 | HHI.HP ---
HPI Primary Care Physician No Primary Care Physician Chief Complaint Chest pain and itching History of Present Illness 51-year-old female with history of hypertension, hyperlipidemia, and diabetes presents to emergency room for further evaluation of chest pain and itching. Onset of chest pain last evening. Location left anterior chest. Characterized as pressure. No radiation of pain. Endorses similar chest pain past for many years. In fact, last visit to [place] a mandatory speech communication instructor referral was placed due to chronic intermittent chest pain. No associated symptoms. No known precipitating or relieving factors. Currently she is chest pain-free. Also complains of itching on right upper forearm and right breast area started yesterday. Review of Systems General: No fatigue,weakness, fever, chills, or recent illness. Has been in her general state of health. HEENT: No RIVERA, no vision changes, no nasal congestion or drainage CV: As stated above. Denies any current chest pain or pressure. No palpitations or dizziness. RESP: No SOB, cough, wheeze, or recent URI. History of COPD. GI: No nausea, vomiting, bowel changes, diarrhea, constipation, pain, distention , or blood in stool. Reports good appetite. : No dysuria, urgency, frequency EXT: No lower leg edema, no paraesthesias MS: No discomfort or change in ROM NEURO: No change in memory, dizziness, difficulty with balance, LOC, motor/ sensory deficits PSYCH: No anxiety, depression, suicidal ideation. SKIN: No rashes, no concerning lesions. Past Family Social History Allergies: Coded Allergies: Bactrim (Verified Allergy, Mild, Itching, 11/08/16) *MDRO Multi-Drug Resistant Organism (Verified Allergy, Unknown, 11/08/16) MRSA Codeine (Verified Adverse Reaction, Severe, 11/08/16) PT STATES NOT ALLERGIC TO THIS DRUG OR HAVE ANY SIDE EFFECTS Percocet (Verified Adverse Reaction, Severe, Nausea/Vomiting, 11/08/16) Past Medical History Hypertension, hyperlipidemia, diabetes, bipolar, depression, COPD Past Surgical History Hysterectomy Reported Medications Active Nitroglycerin SL (Nitroglycerin) 0.4 Mg Subl 0.4 Mg SL DIRECTED PRN ONE TABLET UNDER THE TONGUE NEEDED FOR CHEST PAIN, MAY REPEAT EVERY FIVE MINUTES FOR A TOTAL OF 3 DOSES OR CALL 911 IF NO RELIEF Glipizide 10 Mg Tab 10 Mg PO BIDAC Take 30 minutes before a meal Gabapentin 300 Mg Cap 300 Mg PO TID Novolin 70-30 Inj (Insulin Human Isoph/Insulin Regular) 1,000 Unit/10 Ml Vial 1 Units SQ BIDAC Losartan (Losartan Potassium) 25 Mg Tab 25 Mg PO DAILY Protonix (Pantoprazole Sodium) 40 Mg Tab 40 Mg PO DAILY Lasix (Furosemide) 20 Mg Tab 20 Mg PO DAILY Amlodipine (Amlodipine Besylate) 2.5 Mg Tab 2.5 Mg PO DAILY Proair Hfa 8.5 GM Inh (Albuterol Sulfate) 90 Mcg/Act Aer 2 Puff INH Q6H PRN 108 mcg/actuation Active Ordered Medications Current Medications Medications (Trade) Dose Ordered Sig/Elton Route Start Time Stop Time Status Last Admin (NS Flush) 2 ml UNSCH PRN IVF 11/08/16 03:30 Social History Known hyper tension, hyperlipidemia, and diabetes. Smokes 23 cigarettes daily. States she quit drinking alcohol 4 years ago however had one drink last night. Denies any illegal drug use. Endorses a sedentary lifestyle. Past cardiac testing 03/05/16Lexiscan stable with no significant fixed or reversible abnormality, EF greater than 70%. Physical Exam Vital Signs Vital Signs Date Time Temp Pulse Resp B/P Pulse Ox O2 Delivery O2 Flow Rate FiO2 11/08/16 08:25 98.0 82 17 124/74 98 11/08/16 06:54 86 18 135/76 97 11/08/16 06:02 88 16 135/78 97 Room Air 11/08/16 03:21 100 Room Air 11/08/16 03:01 98.8 101 18 143/85 100 Physical Exam GENERAL: Alert WN, WD, NAD, pleasant, , obese female HEAD: NC, AT EYES: Sclera clear, conjunctiva without injection, pupils equal and round ENT: Mucous membranes pink and moist CV: RRR, without murmur, rub, gallop, no JVD, S1-S2 no S3-S4. RESP: Clear lungs throughout bilateral, no crackles, wheeze, rhonchi, symmetrical chest rise, nonlabored, able to speak in full sentences ABD: Soft, NT, ND, no masses, positive bowel tones, obese BACK: No CVAT, no scoliosis EXT: Pulses +24, no dependent edema MS: Normal tone 4 extremities, nontender, no obvious deformities, full range of motion NEURO: CN II through CN XII grossly intact, motor strength 5/5, gait WNL PSYCH: A+O 3, pleasant affect, appropriate speech, appropriate mood and affect , insight and judgment SKIN: 2 small erythema areas on right lateral breast and 2 small erythema areas of anterior right upper arm, areas are without drainage, Normal turgor, normal texture, no lesions, no rashes, even hair distribution Laboratory Laboratory Tests Test 11/08/16 11/08/16 03:30 06:30 White Blood Count 6.1 Red Blood Count 4.33 Hemoglobin 12.8 Hematocrit 37.5 Mean Corpuscular Volume 86.8 Mean Corpuscular Hemoglobin 29.5 Mean Corpuscular Hemoglobin 34.0 Concent Red Cell Distribution Width 14.1 Platelet Count 338 Mean Platelet Volume 8.7 Neutrophils (%) (Auto) 54.6 Lymphocytes (%) (Auto) 38.3 Monocytes (%) (Auto) 5.0 Eosinophils (%) (Auto) 1.5 Basophils (%) (Auto) 0.6 Neutrophils # (Auto) 3.3 Lymphocytes # (Auto) 2.3 Monocytes # (Auto) 0.3 Eosinophils # (Auto) 0.1 Basophils # (Auto) 0.0 CBC Comment DIFF FINAL Differential Comment Prothrombin Time 9.7 Prothromb Time International 0.9 Ratio Activated Partial 27.6 Thromboplast Time Sodium Level 138 Potassium Level 3.7 Chloride Level 100 Carbon Dioxide Level 28.4 Anion Gap 10 Blood Urea Nitrogen 12 Creatinine 1.00 Estimat Glomerular Filtration 70 Rate Random Glucose 309 Calcium Level 8.9 Magnesium Level 1.9 Total Bilirubin 0.2 Aspartate Amino Transf 17 (AST/SGOT) Alanine Aminotransferase 23 (ALT/SGPT) Alkaline Phosphatase 110 Total Creatine Kinase 166 148 Creatine Kinase MB 1.2 0.8 Troponin I LESS THAN 0.02 LESS THAN 0.02 B-Type Natriuretic Peptide LESS THAN 2 Total Protein 7.9 Albumin 3.0 Lipase 306 Result Diagram: 11/08/1632911/08/16329 Imaging Last Impressions Chest X-Ray 11/08/16316 Signed Impressions: Service Date/Time: Tuesday, November 08, 2016 03:56 - CONCLUSION: No acute cardiopulmonary disease. Latasha Rodriguez MD Course EKGs 2 EKG normal sinus rhythm, no ST or T-segment changes Assessment and Plan Assessment and Plan #1 Chest painadmitted to chest pain center. Ruled out with 2 sets of EKGs and cardiac enzymes. Seen and evaluated by Dr. Johnson Pedroza. Patient given option to repeat chemical stress test or follow-up with [facility] as previously planned. Patient opting not to have chemical stress test and will follow-up with her etiology referral. Given patient's long-standing intermittent chest pain and recent stress test February 2016 will discharge patient this a.m. #2 Hypertensioncontinue low certain, amlodipine, Lasix #3 Diabetescontinue glipizide, low-dose SSI #4 GERDcontinue Protonix #5 Pruritus-wash area with soap and water, use [id number] calamine lotion to affected area, and wash bed linens. Reassured her bedbugs would be visible in her home or bed sheets and that she does not appear to have scabies. Rizwana Wilkinson November 08, 2016 09:49
[2016-11-08] MEDS ORDERED: ONDANSETRON HCL 4 MG/2 ML VIAL IV PRN (10:00)
[2016-11-08] MEDS ORDERED: glipiZIDE 10 MG TAB PO SCH (10:00)
[2016-11-08] MEDS ORDERED: FUROSEMIDE 20 MG TAB PO SCH (10:00)
[2016-11-08] MEDS ORDERED: PANTOPRAZOLE SOD 40 MG DELAYED RELEASE TAB PO SCH (10:00)
[2016-11-08] MEDS ORDERED: amLODIPine BESYLATE 5 MG TAB PO SCH (10:00)
[2016-11-08] MEDS ORDERED: NITROGLYCERIN 0.4 MG SL 25 TABS/BTL SL PRN (10:00)
[2016-11-08] MEDS ORDERED: LOSARTAN 25 MG TAB PO SCH (10:00)
[2016-11-08] MEDS ORDERED: PILL SPLITTER OTHER PRN (10:30)
--- NOTE | 2016-11-08 11:32 | HHI.DCPOC ---
Discharge Care Plan Diagnosis: (1) Atypical chest pain Goals to Promote Your Health * To prevent worsening of your condition and complications * To maintain your health at the optimal level Directions to Meet Your Goals Take your medications as prescribed Follow your dietary instruction Follow activity as directed Keep your appointments as scheduled Take your immunizations and boosters as scheduled If your symptoms worsen call your PCP, if no PCP go to Urgent Care Center or Emergency Room Smoking is Dangerous to Your Health. Avoid second hand smoke Call the 24-hour hour crisis hotline for domestic abuse at Rizwana Wilkinson November 08, 2016 11:32
[2016-11-08] MEDS ORDERED: GABAPENTIN 300 MG CAP PO SCH (13:00)
--- NOTE | 2016-11-08 13:40 | EKG ---
Date Performed: 11/08/2016 Time Performed: 07:00:04 PTAGE: 51 years EKG: Sinus rhythm LOW QRS VOLTAGE IN PRECORDIAL LEADS BORDERLINE ECG PREVIOUS TRACING : 06/30/2016 01.53 Since previous tracing, no significant change noted DOCTOR: Johsnon Pedroza Interpretating Date/Time 11/08/2016 13:39:32
--- NOTE | 2016-11-08 13:41 | EKG ---
Date Performed: 11/08/2016 Time Performed: 03:14:49 PTAGE: 51 years EKG: Sinus rhythm POSSIBLE LEFT ATRIAL ENLARGEMENT BORDERLINE ECG NO PREVIOUS TRACING DOCTOR: Johnson Pedroza Interpretating Date/Time 11/08/2016 13:40:45
== END 2016-11-08 12:06 | disposition home or self-care (01) ==
LOC: NEPC 03:00 → NEDA 04:56 → NEPFCDU 06:13
PROVIDERS: ADMIT Internal Medicine Interventional Cardiology; ATTEND Internal Medicine Interventional Cardiology
DX: R07.89 Other chest pain (principal); I11.0 Hypertensive heart disease with heart failure; I50.9 Heart failure, unspecified; E11.9 Type 2 diabetes mellitus without complications; E78.5 Hyperlipidemia, unspecified; E78.00 Pure hypercholesterolemia, unspecified; J44.9 Chronic obstructive pulmonary disease, unspecified; K21.9 Gastro-esophageal reflux disease without esophagitis; F17.210 Nicotine dependence, cigarettes, uncomplicated; F32.9 Major depressive disorder, single episode, unspecified; L29.9 Pruritus, unspecified; Z88.1 Allergy status to other antibiotic agents; Z88.5 Allergy status to narcotic agent; Z79.4 Long term (current) use of insulin; Z88.6 Allergy status to analgesic agent
CPT/HCPCS: 71010; 80053; 82550; 82552; 83690; 83735; 83880; 84484; 85025; 85610; 85730; 93005; 99285; G0378; J1815; J2270; J7030; Q0163